=== PATIENT | male | born 1940 | race Caucasian/White ===

== ENCOUNTER 2022-02-25 16:12 | Emergency (ER) | payer OTHER ==
[~2022-02-25] VITALS: Ht 170.2 cm; Wt 68.0 kg
[2022-02-25] MEDS ORDERED: LORAZEPAM 2 MG/1 ML VIAL ONE (16:26)
--- NOTE | 2022-02-25 16:43 | NUR ---
PT IS IN ROOM #2B. DR DELGADO EVALUATED THE PT.
[2022-02-25] MEDS ORDERED: LORAZEPAM 2 MG/1 ML VIAL IV ONE (16:45)
[2022-02-25 17:05] LABS: HEMATOCRIT 29.7 % (36.7-47.1); MEAN CORPUSCULAR HEMOGLOBIN 29.7 uug (23.8-33.4); MEAN CORPUSCULAR VOLUME 87.1 fL (73.0-96.2); PLATELET COUNT (AUTO) 210 K/uL (152-348)
[2022-02-25 17:25] LABS: THYROID STIMULATING HORMONE 1.624 mIU/mL (0.358-3.740)
--- NOTE | 2022-02-25 17:33 | NUR ---
MEDICAL RESTRAINTS REMOVED ACCORDING TO DR DELGADO ORDER. PT IS RESTING COMFORTABLY IN BED. NO S/S OF ACUTE DISTRESS.
[2022-02-25 17:43] LABS: ETHANOL < 3 MG/DL (0-0)
[2022-02-25] MEDS ORDERED: levETIRAcetam IV 500 MG in IV DEXTROSE 5% 100 ML IV ONE (18:00)
[2022-02-25] MEDS ORDERED: levoFLOXacin 750 MG/D5W 150 ML PIGGYBACK IV ONE (18:00)
[2022-02-25 18:06] LABS: ALANINE AMINOTRANSFERASE 19 U/L (16-63); ALKALINE PHOSPHATASE 75 U/L (50-136); ASPARTATE AMINOTRANSFERASE 20 U/L (15-37); BILIRUBIN,DIRECT 0.3 mg/dL (0.0-0.2); BILIRUBIN,TOTAL 1.1 mg/dL (0.2-1.0); CARBON DIOXIDE 20 mmol/L (21-32); CHLORIDE 104 mmol/L (98-107); GLUCOSE 119 mg/dL (74-106); POTASSIUM 3.4 mmol/L (3.5-5.1); TOTAL PROTEIN, SERUM 6.7 g/dL (6.4-8.2); UREA NITROGEN, BLOOD 24 mg/dL (7-18)
[2022-02-25 18:07] LABS: ACETAMINOPHEN < 2.0 ug/mL (10-30)
[2022-02-25] MEDS ORDERED: levoFLOXacin 750MG/D5W 150 ML IV ONE (18:16)
--- NOTE | 2022-02-25 19:09 | NUR ---
REPORT GIVEN TO [employer]ER TONIA PACKER.
--- NOTE | 2022-02-25 19:55 | NUR ---
Called [facility] for transfer
--- NOTE | 2022-02-25 19:58 | NUR ---
Spoke to Carmen. Patient is accepted at [facility] under the care of Dr Godinez. Patient will go to room 4522 bed 1
--- NOTE | 2022-02-25 20:20 | NUR ---
[facility] transfer center called back with ambulance info. Patient will be transport by [facility], ETA is midnight.
--- NOTE | 2022-02-25 22:50 | NUR ---
tried calling to give report
--- NOTE | 2022-02-25 23:15 | NUR ---
Patient Tranfers to outside Facility via Ambulance Location: [facility]
--- NOTE | 2022-02-26 00:04 | NUR ---
Report given to Esteban RANDALL
== END 2022-02-25 23:15 | disposition hospice, inpatient (51) ==
LOC: ER 16:15
DX: I61.9 Nontraumatic intracerebral hemorrhage, unspecified (principal); F03.90 Unspecified dementia, unspecified severity, without behavioral disturbance, psychotic disturbance, mood disturbance, and anxiety; Z20.822 Contact with and (suspected) exposure to COVID-19
CPT/HCPCS: 36415; 70450; 71045; 80048; 80076; 80299; 80320; 84443; 84484; 85025; 85730; 87426; 93005; 96365; 96375; 99291; J1953; J1956; J2060; J7040; A4663; G0480